=== PATIENT | female | born 1995 | race Caucasian/White ===

== ENCOUNTER → 2018-03-03 | Outpatient (CLI) | payer MEDICAID | LOC: MHCPAIN 13:30 | DX: G89.29 Other chronic pain (principal); M47.817 Spondylosis without myelopathy or radiculopathy, lumbosacral region; M54.16 Radiculopathy, lumbar region; M53.3 Sacrococcygeal disorders, not elsewhere classified | CPT/HCPCS: G0463 ==

== ENCOUNTER → 2018-03-19 | Outpatient (CLI) | payer MEDICAID | LOC: MHCPAIN 10:51 | DX: M47.817 Spondylosis without myelopathy or radiculopathy, lumbosacral region (principal); M51.26 Other intervertebral disc displacement, lumbar region | CPT/HCPCS: J1100; Q9967 ==

== ENCOUNTER → 2018-04-01 | Outpatient (CLI) | payer MEDICAID | LOC: MHCPAIN 15:45 | DX: G89.29 Other chronic pain (principal); M47.817 Spondylosis without myelopathy or radiculopathy, lumbosacral region; M54.16 Radiculopathy, lumbar region; M53.3 Sacrococcygeal disorders, not elsewhere classified | CPT/HCPCS: G0463 ==

== ENCOUNTER → 2018-04-16 | Outpatient (CLI) | payer MEDICAID | LOC: MHCPAIN 09:39 | DX: M54.16 Radiculopathy, lumbar region (principal) | CPT/HCPCS: J1040; J2250; J3010; Q9967 ==

== ENCOUNTER → 2018-05-19 | Outpatient (CLI) | payer MEDICAID | LOC: MHCPAIN 13:57 | DX: G89.29 Other chronic pain (principal); M47.817 Spondylosis without myelopathy or radiculopathy, lumbosacral region; M54.16 Radiculopathy, lumbar region; M53.3 Sacrococcygeal disorders, not elsewhere classified | CPT/HCPCS: G0463 ==

== ENCOUNTER → 2018-08-11 | Outpatient (CLI) | payer MEDICAID | LOC: MHCPAIN 14:09 | DX: G89.29 Other chronic pain (principal); M47.817 Spondylosis without myelopathy or radiculopathy, lumbosacral region; M54.16 Radiculopathy, lumbar region; M53.3 Sacrococcygeal disorders, not elsewhere classified | CPT/HCPCS: G0463 ==

== ENCOUNTER → 2018-08-20 | Outpatient (CLI) | payer MEDICAID | LOC: MHCPAIN 14:52 | DX: M47.817 Spondylosis without myelopathy or radiculopathy, lumbosacral region (principal); M54.16 Radiculopathy, lumbar region | CPT/HCPCS: J1100; J2250; J3010; Q9967 ==

== ENCOUNTER → 2018-12-09 | Outpatient (CLI) | payer MEDICAID | LOC: MHCPAIN 10:16 | DX: G89.29 Other chronic pain (principal); M47.817 Spondylosis without myelopathy or radiculopathy, lumbosacral region; M54.16 Radiculopathy, lumbar region; M53.3 Sacrococcygeal disorders, not elsewhere classified | CPT/HCPCS: G0463 ==

== ENCOUNTER → 2018-12-14 | Outpatient (CLI) | payer MEDICAID | LOC: MHCPAIN 12:17 | DX: M47.817 Spondylosis without myelopathy or radiculopathy, lumbosacral region (principal); M54.16 Radiculopathy, lumbar region | CPT/HCPCS: J1100; J2250; J3010; Q9967 ==

== ENCOUNTER → 2018-12-29 | Outpatient (CLI) | payer MEDICAID | LOC: MHCPAIN 12:51 | DX: G89.29 Other chronic pain (principal); M47.817 Spondylosis without myelopathy or radiculopathy, lumbosacral region; M54.16 Radiculopathy, lumbar region; M53.3 Sacrococcygeal disorders, not elsewhere classified | CPT/HCPCS: G0463 ==

== ENCOUNTER → 2019-06-01 | Outpatient (CLI) | payer MEDICAID | LOC: MHCPAIN 14:23 | DX: G89.29 Other chronic pain (principal); M47.817 Spondylosis without myelopathy or radiculopathy, lumbosacral region; M54.16 Radiculopathy, lumbar region; M53.3 Sacrococcygeal disorders, not elsewhere classified | CPT/HCPCS: G0463 ==